=== PATIENT | male | born 1970 | race Caucasian/White ===

== ENCOUNTER 2020-01-14 09:55 | Outpatient (CLI) | payer OTHER ==
[2020-01-15 15:23] LABS: SARS-CoV-2 MS2 Positive; SARS-CoV-2 N Gene Negative; SARS-CoV-2 S Gene Negative; SARS-CoV-2 by NAA Not Detected (NotDetected); SARS-CoV-2 orf1ab Negative
== END 2020-01-14 09:56 | disposition home or self-care (01) ==
LOC: LABBT 09:55
PROVIDERS: ATTEND Internal Medicine
DX: K21.9 Gastro-esophageal reflux disease without esophagitis (principal); R14.0 Abdominal distension (gaseous); R74.8 Abnormal levels of other serum enzymes; Z20.828 Contact with and (suspected) exposure to other viral communicable diseases
CPT/HCPCS: 87635; U0003

== ENCOUNTER 2020-01-18 08:17 | Outpatient (CLI) | payer OTHER ==
--- NOTE | 2020-01-18 12:06 | RAD ---
XR UGI Air Con W/Small Bowel HISTORY: Uniform abdominal distention, GERD, elevated liver enzymes, concern for small bowel obstruct ion COMPARISON: None. FINDINGS: Swallowing was grossly normal. There is unobstructed flow of contrast into the esophagus into this st omach, small bowel loops and right colon. No ulcer, stricture, mass or diverticulum is seen. A small hiatal hernia is noted. The mucosal patter n appears normal. No abnormal small bowel loop separation or dilatation is seen. Spot compression under fluoroscopy demonstrates no abnormalities. IMPRESSION: 1. Small hiatal hernia 2. No evidence of small bowel obstruction.
== END 2020-01-18 08:18 | disposition home or self-care (01) ==
LOC: RAD 08:17
PROVIDERS: ATTEND Internal Medicine
DX: K21.9 Gastro-esophageal reflux disease without esophagitis (principal); R14.0 Abdominal distension (gaseous); R74.8 Abnormal levels of other serum enzymes; Z11.59 Encounter for screening for other viral diseases; K44.9 Diaphragmatic hernia without obstruction or gangrene
CPT/HCPCS: 74246